=== PATIENT | male | born 1965 | race Caucasian/White ===

== ENCOUNTER 2021-01-09 06:02 | Emergency (ER) | payer BC ==
[~2021-01-09] VITALS: Ht 182.9 cm; Wt 86.4 kg
[2021-01-09 06:17] VITALS: TEMP 97.3
[2021-01-09 06:48] LABS: BASO # 0.1 (0.0-0.2); BASO % 0.8 % (0.0-2.0); EOS # 0.2 (0.0-0.7); EOS % 2.7 % (0-4.0); GRAN # 6.2 (1.4-6.5); HEMATOCRIT 43.8 % (42.0-52.0); HEMOGLOBIN 14.6 g/dl (13.5-18.0); LYMPH # 1.7 (1.2-3.4); LYMPH % 19.1 % (20.0-51.0); MEAN CELL VOLUME 94 fl (80.0-100.0); MEAN CORPUSCULAR HEMOGLOBIN 31 pg (27.0-31.0); MEAN CORPUSCULAR HGB CONC 33 g/dl (33.0-37.0); MEAN PLATELET VOLUME 9.3 fl (7.4-10.4); MONO # 0.5 (0.1-0.6); MONO % 6.1 % (1.7-9.3); PLATELET COUNT 299 K/mm3 (130-400); RED BLOOD COUNT 4.67 M/mm3 (4.20-5.60)
[2021-01-09 06:55] LABS: ALBUMIN 4.5 gm/dL (3.5-5.0); BILIRUBIN,TOTAL 0.7 mg/dL (0.0-1.0); CREATININE, serum 1.18 (0.66-1.25); POTASSIUM 3.7 mmol/L (3.4-5.0); TOTAL PROTEIN 7.1 gm/dL (6.4-8.2)
[2021-01-09] MEDS ORDERED: NATURAL C500 MG PO (07:55)
[2021-01-09] MEDS ORDERED: ASPIRIN 81M81 MG/TA2 PO (07:55)
[2021-01-09] MEDS ORDERED: VITAMIN D31000 I1 PO (07:56)
[2021-01-09] MEDS ORDERED: COMPLETE MULTI1 TAB PO (07:56)
[2021-01-09] MEDS ORDERED: NATURAL MAGNES200 MG PO (07:56)
[2021-01-09 08:07] LABS: COLLECTION METHOD CLEAN CATCH
[2021-01-09 08:16] LABS: MUCOUS Present /lpf; PH 5 (5-8); SQUAMOUS EPITHELIAL None Seen /hpf; URINE APPEARANCE Hazy; URINE BACTERIA Rare /hpf; URINE BILIRUBIN Negative (NEGATIVE); URINE BLOOD 3+ (NEGATIVE); URINE COLOR Yellow; URINE GLUCOSE Negative (NEGATIVE); URINE KETONE Negative (NEGATIVE); URINE LEUKOCYTE ESTERASE Negative (NEGATIVE); URINE NITRATE Negative (NEGATIVE); URINE PROTEIN(semi-quant) Negative (NEGATIVE); URINE RBC 20-50 /hpf; URINE UROBILINOGEN Negative (NEGATIVE)
[2021-01-09] MEDS ORDERED: NORCO 325 MG-51 TAB PO (08:40)
[2021-01-09] MEDS ORDERED: ZOFRAN ODT4 MG PO (08:40)
[2021-01-09] MEDS ORDERED: MOTRIN 800800 MG/TAB PO (08:40)
[2021-01-09] MEDS ORDERED: FLOMAX 0.40.4 MG/CAP PO (08:40)
[2021-01-09 08:53] VITALS: BP 114/77; PULSE 57
== END 2021-01-09 09:00 | disposition home or self-care (01) ==
LOC: COL.ER 06:02
PROVIDERS: Student in an Organized Health Care Education/Training Program
DX: N13.2 Hydronephrosis with renal and ureteral calculous obstruction (principal)
CPT/HCPCS: J1885; J2405; J3010; J7030